=== PATIENT | male | born 1935 | race Caucasian/White ===

== ENCOUNTER → 2016-09-30 | Outpatient (CLI) | payer MEDICARE, OTHER ==
[2016-09-30 16:42] LABS: BUN/CREATININE RATIO 17 (0-10)
== END ==
LOC: LAB 16:02
PROVIDERS: Internal Medicine Cardiovascular Disease
DX: I25.10 Atherosclerotic heart disease of native coronary artery without angina pectoris (principal); I47.2 Ventricular tachycardia; R55 Syncope and collapse; E78.5 Hyperlipidemia, unspecified; R59.9 Enlarged lymph nodes, unspecified; R06.02 Shortness of breath; R25.2 Cramp and spasm
CPT/HCPCS: 36415; 80053; 83880; 84439; 84443; 84481

== ENCOUNTER → 2016-12-20 | Outpatient (CLI) | payer MEDICARE, OTHER ==
[2016-12-20 15:27] LABS: HEMOGLOBIN 17.9 gm/dl (14.0-17.5); RED BLOOD COUNT 5.69 M/UL (4.20-5.50)
[2016-12-20 15:50] LABS: BUN/CREATININE RATIO 20 (0-10)
== END ==
LOC: ECHO 13:30
PROVIDERS: Emergency Medicine
DX: R05 Cough (principal); I50.32 Chronic diastolic (congestive) heart failure; R60.0 Localized edema; J98.4 Other disorders of lung; I08.3 Combined rheumatic disorders of mitral, aortic and tricuspid valves
CPT/HCPCS: ECHO; 36415; 71020; 80048; 83880; 85027; 93306

== ENCOUNTER 2020-09-17 12:02 | Inpatient (IN) | payer MEDICARE, OTHER ==
[~2020-09-17] VITALS: Ht 175.3 cm; Wt 101.6 kg
[~2020-09-17 12:02] MED LIST: CLEOCIN HCL150 MG PO
[2020-09-17 13:05] LABS: HEMOGLOBIN 16.4 gm/dl (14.0-17.5); RED BLOOD COUNT 5.5 M/UL (4.20-5.50); WHITE BLOOD COUNT 11.5 K/UL (4.5-11.0)
[2020-09-17 13:32] LABS: BUN/CREATININE RATIO 15 (0-10)
[2020-09-17] MEDS ORDERED: ASPIRIN EC81 MG PO (16:39)
[2020-09-17] MEDS ORDERED: FISH OIL 1,0001 EACH PO (16:39)
[2020-09-17] MEDS ORDERED: DALIRESP500 MCG PO (16:39)
[2020-09-17] MEDS ORDERED: FLOMAX 0.4 MG0.4 MG PO (16:39)
[2020-09-17] MEDS ORDERED: PLAVIX75 MG PO (16:40)
[2020-09-17] MEDS ORDERED: BROVANA15 MCG/2 M INH (16:40)
[2020-09-17] MEDS ORDERED: CYMBALTA60 MG PO (16:41)
[2020-09-17] MEDS ORDERED: FOLIC ACID 1 MG1 MG PO (16:42)
[2020-09-17] MEDS ORDERED: ERYTHROMYCIN OP1 GM EYEBOTH (16:42)
[2020-09-17] MEDS ORDERED: GABAPENTIN800 MG PO (16:43)
[2020-09-17] MEDS ORDERED: GABAPENTIN400 MG PO (16:44)
[2020-09-17] MEDS ORDERED: NAMENDA10 MG PO (16:44)
[2020-09-17] MEDS ORDERED: METHOTREXATE T2.5 MG PO (16:45)
[2020-09-17] MEDS ORDERED: PROTONIX40 MG PO (16:46)
[2020-09-17] MEDS ORDERED: REMERON15 MG PO (16:46)
[2020-09-17] MEDS ORDERED: PREDNISONE 10 M10 MG PO (16:47)
[2020-09-17] MEDS ORDERED: YUPELRI175 MCG/3 INH (16:47)
[2020-09-17] MEDS ORDERED: ZOCOR 40 MG TAB40 MG PO (16:47)
[2020-09-17] MEDS ORDERED: TRAMADOL HCL50 MG PO (16:48)
[2020-09-17] MEDS ORDERED: ROPINIROLE HCL2 MG PO (16:48)
[2020-09-17] MEDS ORDERED: PULMICORT0.5 MG/21 INH (16:49)
[2020-09-18 04:48] LABS: ACINETOBACTER BAUMANNII Not Detected (Negative); CANDIDA ALBICANS Not Detected (Negative); CANDIDA KRUSEI Not Detected (Negative); CANDIDA TROPICALIS Not Detected (Negative); ENTEROCOCCUS Not Detected (Negative); ESCHERICHIA COLI Not Detected (Negative); HAEMOPHILUS INFLUENZAE Not Detected (Negative); KLEBSIELLA OXYTOCA Not Detected (Negative); KLEBSIELLA PNEUMONIAE Not Detected (Negative); KPC-CARBAPENEM-RESISTANCE GENE Not Detected (Negative); PSEUDOMONAS AERUGINOSA Not Detected (Negative); SERRATIA MARCESANS Not Detected (Negative); STAPHYLOCOCCUS Not Detected (Negative); STAPHYLOCOCCUS AUREUS Not Detected (Negative); STREP AGALACTIAE (GROUP B) Not Detected (Negative); STREP PYOGENES (GROUP A) Not Detected (Negative); STREPTOCOCCUS Not Detected (Negative); mecA (METHICILLIN RESIST GENE Not Detected (Negative); vanA/B (VANCOMYCIN RESIST GENE Not Detected (Negative)
[2020-09-18 05:55] LABS: RED BLOOD COUNT 5.1 M/UL (4.20-5.50)
[2020-09-18 06:00] LABS: WHITE BLOOD COUNT 23.3 K/UL (4.5-11.0)
[2020-09-18 09:31] LABS: PROTEUS DETECTED (Negative)
[2020-09-19 06:30] LABS: HEMOGLOBIN 13.3 gm/dl (14.0-17.5); RED BLOOD COUNT 4.59 M/UL (4.20-5.50)
[2020-09-19 06:35] LABS: WHITE BLOOD COUNT 14.4 K/UL (4.5-11.0)
[2020-09-20 04:32] LABS: RED BLOOD COUNT 4.46 M/UL (4.20-5.50)
[2020-09-20 04:46] LABS: WHITE BLOOD COUNT 10.3 K/UL (4.5-11.0)
[2020-09-20 05:30] LABS: BUN/CREATININE RATIO 18 (0-10)
[2020-09-21 07:27] LABS: HEMOGLOBIN 12.8 gm/dl (14.0-17.5); RED BLOOD COUNT 4.48 M/UL (4.20-5.50); WHITE BLOOD COUNT 8.2 K/UL (4.5-11.0)
[2020-09-21 07:49] LABS: BUN/CREATININE RATIO 18 (0-10)
[2020-09-22] MEDS ORDERED: LEVOFLOXACIN500 MG PO (09:05)
--- NOTE | 2020-09-22 10:05 | NUR ---
09/22/20 1000 ROOM AIR O2 SAT 88%
--- NOTE | 2020-09-22 13:22 | NUR ---
NURSE TO DO ALL EDUCATION TO PATIENT , WHEN SHE COMES BACK TO ROOM. SOME DIFFICULTY WITH COMPREHENSION AT THIS TIME, Derek ISABEL N,
[2020-11-06] MEDS ORDERED: YUPELRI175 MCG/3 INH (09:27)
[2020-12-09] MEDS ORDERED: DALIRESP500 MCG PO (08:14)
[2020-12-09] MEDS ORDERED: CYMBALTA60 MG PO (08:15)
[2020-12-09] MEDS ORDERED: ULTRAM50 MG PO (08:21)
[2020-12-09] MEDS ORDERED: NITROGLYCERIN0.4 MG SL (08:22)
[2020-12-09] MEDS ORDERED: CLINDAMYCIN HC300 MG PO (10:20)
[2020-12-09] MEDS ORDERED: LEVOFLOXACIN500 MG PO (10:20)
[2020-12-09] MEDS ORDERED: HYDROCODON-ACE1 EAC4 PO (10:20)
[2020-12-09] MEDS ORDERED: TOPROL XL25 MG PO (10:34)
== END 2020-09-22 14:23 | disposition home or self-care (01) | DRG 853 ==
LOC: ER1 12:02 → CDU 15:56 → MED SURG 4 15:56
PROVIDERS: Emergency Medicine; Urology; ADMIT Internal Medicine
PROC: 0T778DZ Dilation of Left Ureter with Intraluminal Device, Via Natural or Artificial Opening Endoscopic (ICD-10-PCS; principal; 2020-09-18 16:15)
DX: A41.89 Other specified sepsis (principal); J96.01 Acute respiratory failure with hypoxia; J18.9 Pneumonia, unspecified organism; N17.9 Acute kidney failure, unspecified; N39.0 Urinary tract infection, site not specified; B02.29 Other postherpetic nervous system involvement; J44.0 Chronic obstructive pulmonary disease with (acute) lower respiratory infection; Z20.822 Contact with and (suspected) exposure to COVID-19; N13.6 Pyonephrosis; I50.32 Chronic diastolic (congestive) heart failure; R65.20 Severe sepsis without septic shock; B96.4 Proteus (mirabilis) (morganii) as the cause of diseases classified elsewhere; G89.29 Other chronic pain; M54.9 Dorsalgia, unspecified; I25.10 Atherosclerotic heart disease of native coronary artery without angina pectoris; G62.9 Polyneuropathy, unspecified; M06.9 Rheumatoid arthritis, unspecified; R41.3 Other amnesia; I11.0 Hypertensive heart disease with heart failure; E78.5 Hyperlipidemia, unspecified; G47.33 Obstructive sleep apnea (adult) (pediatric); Z98.49 Cataract extraction status, unspecified eye; Z79.02 Long term (current) use of antithrombotics/antiplatelets; Z79.82 Long term (current) use of aspirin; Z88.8 Allergy status to other drugs, medicaments and biological substances; Z95.5 Presence of coronary angioplasty implant and graft; Z95.810 Presence of automatic (implantable) cardiac defibrillator; Z79.899 Other long term (current) drug therapy; I25.2 Old myocardial infarction; Z81.8 Family history of other mental and behavioral disorders
CPT/HCPCS: 36415; 71045; 71046; 74018; 80048; 80053; 81001; 82550; 82553; 83605; 83690; 83874; 84484; 85025; 87040; 87077; 87086; 87150; 87186; 93005; 94640; 94660; 94664; 94760; 96365; 96375; 96376; 99285; C1769; C1894; C2617; J0696; J1335; J1885; J2270; J2405; J2704; J3010; J7030; J7040; J7120; Q9967; U0002

== ENCOUNTER → 2020-10-06 | Outpatient (CLI) | payer MEDICARE, OTHER ==
[~2020-10-06] MED LIST changes: +ASPIRIN EC81 MG PO; +BROVANA15 MCG/2 M INH; +CLINDAMYCIN HC300 MG PO; +CYMBALTA60 MG PO; +DALIRESP500 MCG PO; +ERYTHROMYCIN OP1 GM EYEBOTH; +FISH OIL 1,0001 EACH PO; +FLOMAX 0.4 MG0.4 MG PO; +FOLIC ACID 1 MG1 MG PO; +GABAPENTIN400 MG PO; +GABAPENTIN800 MG PO; +HYDROCODON-ACE1 EAC4 PO; +LEVOFLOXACIN500 MG PO; +METHOTREXATE T2.5 MG PO; +NAMENDA10 MG PO; +NITROGLYCERIN0.4 MG SL; +PLAVIX75 MG PO; +PREDNISONE 10 M10 MG PO; +PROTONIX40 MG PO; +PULMICORT0.5 MG/21 INH; +REMERON15 MG PO; +ROPINIROLE HCL2 MG PO; +TOPROL XL25 MG PO; +TRAMADOL HCL50 MG PO; +ULTRAM50 MG PO; +YUPELRI175 MCG/3 INH; +ZOCOR 40 MG TAB40 MG PO
== END ==
LOC: EXRD 12:56
DX: N20.1 Calculus of ureter (principal); N20.0 Calculus of kidney
CPT/HCPCS: 74018

== ENCOUNTER → 2020-11-06 | Day surgery (SDC) | payer MEDICARE, OTHER ==
[2020-11-13 20:09] LABS: CA OXALATE DIHYDRATE 20 % (.); CALCIUM OXALATE MONOHYDRATE 75 % (.); COLOR Brown (.); HYDROXYAPATITE 5 % (.); SIZE 5x2 mm (.); WEIGHT 44 mg (.)
== END | disposition home or self-care (01) ==
LOC: OR 07:36
PROVIDERS: Urology
DX: N20.0 Calculus of kidney (principal); I25.10 Atherosclerotic heart disease of native coronary artery without angina pectoris; J43.9 Emphysema, unspecified; I50.9 Heart failure, unspecified; K21.9 Gastro-esophageal reflux disease without esophagitis; G47.33 Obstructive sleep apnea (adult) (pediatric); G25.81 Restless legs syndrome; Z91.041 Radiographic dye allergy status; Z79.82 Long term (current) use of aspirin; Z79.02 Long term (current) use of antithrombotics/antiplatelets; Z79.899 Other long term (current) drug therapy
CPT/HCPCS: 93005; C1769; C1894; C2617; J1100; J1885; J1956; J2001; J2405; J2704; J3010; J7030; J7120; Q9962

== ENCOUNTER → 2020-12-05 | Outpatient (CLI) | payer MEDICARE, OTHER ==
[2020-12-05 13:21] LABS: HEMOGLOBIN 14.8 gm/dl (14.0-17.5); RED BLOOD COUNT 4.89 M/UL (4.20-5.50); WHITE BLOOD COUNT 11.1 K/UL (4.5-11.0)
[2020-12-05 13:56] LABS: BUN/CREATININE RATIO 15 (0-10)
== END ==
LOC: ECHO 12:22
PROVIDERS: Internal Medicine Cardiovascular Disease
DX: R55 Syncope and collapse (principal); D47.2 Monoclonal gammopathy; I50.9 Heart failure, unspecified; I08.1 Rheumatic disorders of both mitral and tricuspid valves; Z45.02 Encounter for adjustment and management of automatic implantable cardiac defibrillator; Z20.822 Contact with and (suspected) exposure to COVID-19
CPT/HCPCS: ECHO; 36415; 71046; 80048; 85025; 93306; U0003

== ENCOUNTER → 2020-12-09 | Outpatient (CLI) | payer MEDICARE, OTHER | LOC: CATH 07:17 | DX: Z45.02 Encounter for adjustment and management of automatic implantable cardiac defibrillator (principal); I47.2 Ventricular tachycardia; I25.10 Atherosclerotic heart disease of native coronary artery without angina pectoris; I50.30 Unspecified diastolic (congestive) heart failure; I25.2 Old myocardial infarction; E78.5 Hyperlipidemia, unspecified; M06.9 Rheumatoid arthritis, unspecified; J43.9 Emphysema, unspecified; G47.33 Obstructive sleep apnea (adult) (pediatric); G25.81 Restless legs syndrome; Z95.5 Presence of coronary angioplasty implant and graft; Z86.74 Personal history of sudden cardiac arrest; Z91.041 Radiographic dye allergy status; Z79.82 Long term (current) use of aspirin; Z79.02 Long term (current) use of antithrombotics/antiplatelets; Z79.899 Other long term (current) drug therapy | CPT/HCPCS: 33240; 82962; 93641; 99152; 99153; C1721; J1200; J2250; J3010; J3370; J7040; J7050 ==

== ENCOUNTER → 2021-05-14 | Outpatient (CLI) | payer MEDICARE, OTHER | LOC: KOH-I 15:35 | DX: R22.1 Localized swelling, mass and lump, neck (principal) | CPT/HCPCS: 70490 ==

== ENCOUNTER → 2021-11-25 | Outpatient (CLI) | payer MEDICARE, OTHER | LOC: HEART 5 09:49 | DX: R06.02 Shortness of breath (principal); I08.1 Rheumatic disorders of both mitral and tricuspid valves | CPT/HCPCS: 93306 ==